=== PATIENT | female | born 2000 | race Caucasian/White ===

== ENCOUNTER 2021-11-12 18:05 | Emergency (ER) | payer OTHER ==
[~2021-11-12] VITALS: Ht 165.1 cm; Wt 72.6 kg
[2021-11-12] MEDS ORDERED: ONDANSETRON HCL 4 MG ORAL DISINTEGRATING TAB PO STA (18:36)
[2021-11-12] MEDS ORDERED: ONDANSETRON ODT4 MG PO (19:37)
[2021-11-12 19:44] VITALS: BP 129/83
== END 2021-11-12 19:54 | disposition home or self-care (01) ==
LOC: ER 18:10
DX: S06.0X0A Concussion without loss of consciousness, initial encounter (principal); Y04.0XXA Assault by unarmed brawl or fight, initial encounter; Y92.218 Other school as the place of occurrence of the external cause
CPT/HCPCS: 70450; 99283; Q0162

== ENCOUNTER 2021-11-18 18:02 | Emergency (ER) | payer OTHER ==
[~2021-11-18] VITALS: Ht 165.1 cm; Wt 72.6 kg
[~2021-11-18 18:02] MED LIST: ONDANSETRON ODT4 MG PO
== END 2021-11-18 19:02 | disposition home or self-care (01) ==
LOC: ER 18:35
DX: S06.0X0A Concussion without loss of consciousness, initial encounter (principal); T70.0XXA Otitic barotrauma, initial encounter; R42 Dizziness and giddiness; W50.0XXA Accidental hit or strike by another person, initial encounter; Y99.0 Civilian activity done for income or pay
CPT/HCPCS: 99283